=== PATIENT | female | born 1985 | race Caucasian/White ===

== ENCOUNTER 2016-06-16 09:11 | Emergency (ER) | payer OTHER ==
[~2016-06-16] VITALS: Ht 162.6 cm; Wt 89.6 kg
[2016-06-16] MEDS ORDERED: MOTRIN800 MG PO (10:14)
[2016-06-16 10:59] VITALS: BP 145/94
== END 2016-06-16 10:53 | disposition home or self-care (01) ==
LOC: EME 09:11
DX: T14.8 Other injury of unspecified body region (principal); M79.1 Myalgia; V73.5XXA Driver of bus injured in collision with car, pick-up truck or van in traffic accident, initial encounter; Y92.488 Other paved roadways as the place of occurrence of the external cause
CPT/HCPCS: 99281; 99284